=== PATIENT | male | born 1945 | race Caucasian/White ===

== ENCOUNTER 2025-02-09 19:39 | Inpatient (IN) | payer MEDICARE, MEDICAID ==
[~2025-02-09] VITALS: Ht 162.6 cm; Wt 59.6 kg
[2025-02-09] MEDS ORDERED: LEVE-71 PO (21:22)
[2025-02-09] MEDS ORDERED: BRIM5DRO9 OD (21:22)
[2025-02-09] MEDS ORDERED: BACL10TA PO (21:22)
[2025-02-09] MEDS ORDERED: DIVA-111 PO (21:22)
[2025-02-09] MEDS ORDERED: DORZ10DR6 OD (21:22)
[2025-02-09] MEDS ORDERED: QUET25TA PO (21:22)
[2025-02-09] MEDS ORDERED: CARV-165 PO (21:22)
[2025-02-09] MEDS ORDERED: MULT-1203 PO (21:22)
[2025-02-09] MEDS ORDERED: XALA2.5OS OU (21:23)
[2025-02-09] MEDS ORDERED: HYDR-4062 PO (21:23)
[2025-02-09 22:01] LABS: COVID AG,FIA SOURCE NASAL SWAB
[2025-02-09 22:28] LABS: SARS-COV2 (COVID) ANTIGEN,FIA Negative (Negative)
[2025-02-10 00:11] LABS: APPEARANCE,URINE HAZY (CLEAR); GLUCOSE, URINE (UA) NEGATIVE (NEGATIVE); LEUKOCYTE ESTERASE ,URINE LARGE (NEGATIVE); NITRATE,URINE NEGATIVE (NEGATIVE); OCCULT BLOOD,URINE NEGATIVE (NEGATIVE); PH,URINE DRUG SCREEN 6.0 (5.0-8.0); SPECIFIC GRAVITIY, URINE 1.019 (1.003-1.030)
[2025-02-10 00:17] LABS: AMPHET/METH SCREEN,URINE NEGATIVE (NEGATIVE); BARBITURATE SCREEN, URINE NEGATIVE (NEGATIVE); CANNABINOID SCREEN,URINE NEGATIVE (NEGATIVE); COCAINE SCREEN,URINE NEGATIVE (NEGATIVE); METHADONE SCREEN, URINE NEGATIVE (NEGATIVE)
[2025-02-10 00:20] LABS: ALCOHOL, URINE DRUG SCREEN NEGATIVE (NEGATIVE)
[2025-02-10 00:21] LABS: AMORPHOUS SEDIMENT,UR Many /LPF (None Seen); SQUAMOUS EPITHELIAL CELL,UR Moderate /LPF (None Seen)
[2025-02-10] MEDS ORDERED: ZOLPIDEM TARTRATE 10 MG TABLET PO PRN (02:15)
[2025-02-10 20:00] VITALS: BP 123/61; PULSE 86; RESP 18; TEMP 97.2; TEMP 97.3; O2SAT 96
[2025-02-11] MEDS ORDERED: IBUPROFEN 600 MG TABLET PO PRN (07:15)
[2025-02-11] MEDS ORDERED: ACETAMINOPHEN 325 MG TABLET PO PRN (07:15)
[2025-02-11] MEDS ORDERED: HYDROCODONE/ACETAMINOPHEN 5-325 MG TABLET PO PRN (07:15)
[2025-02-11] MEDS ORDERED: PETROLATUM,WHITE 28 GM JELLY TP PRN (07:15)
[2025-02-11] MEDS ORDERED: DOCUSATE SODIUM 100 MG CAPSULE PO PRN (07:15)
[2025-02-11] MEDS ORDERED: MAG HYDROX/ALUMINUM HYD/SIMETH ES 30 ML SUSPENSION UDCUP PO PRN (07:15)
[2025-02-11] MEDS ORDERED: ALBUTEROL SULFATE HFA 90 MCG/PUFF 8 GM INHALER IH PRN (07:15)
[2025-02-11] MEDS ORDERED: LOPERAMIDE HCL 2 MG CAPSULE PO PRN (07:15)
[2025-02-11] MEDS ORDERED: ONDANSETRON 4 MG TABLET PO PRN (07:15)
[2025-02-11] MEDS ORDERED: BACITRACIN 28 GM OINTMENT TP PRN (07:15)
[2025-02-11] MEDS ORDERED: BENZOCAINE/MENTHOL [CEPACOL] LOZENGE PO PRN (07:15)
[2025-02-11] MEDS ORDERED: OMEPRAZOLE 20 MG CAPSULE PO PRN (07:15)
[2025-02-11] MEDS ORDERED: MAGNESIUM HYDROXIDE SUSPENSION 30 ML UDCUP PO PRN (07:15)
[2025-02-11] MEDS: MULTIVITAMINS, THERAPEUTIC TABLET PO SCH (08:47)
[2025-02-11] MEDS: BACLOFEN 10 MG TABLET PO SCH (08:50)
[2025-02-11] MEDS: DORZOLAMIDE HCL 2% 10 ML OPHTHALMIC SOLUTION OD SCH (08:52)
[2025-02-11] MEDS: BRIMONIDINE TARTRATE 0.2% 5 ML OPHTHALMIC SOLUTION OD SCH (08:55)
[2025-02-11 09:36] VITALS: BP 121/92; PULSE 93; RESP 16; TEMP 97.7; O2SAT 95
[2025-02-11] MEDS: LATANOPROST 0.005% 2.5 ML OPHTHALMIC SOLUTION OU SCH (20:59)
[2025-02-12 11:11] VITALS: BP 105/89; PULSE 92; RESP 16; TEMP 97.7; O2SAT 97
[2025-02-12] MEDS: DIVALPROEX SODIUM 250 MG DR TABLET PO SCH (12:42)
[2025-02-12] MEDS: MEMANTINE HCL 5 MG TABLET PO SCH (18:09)
[2025-02-12 20:22] VITALS: BP 103/88; PULSE 86; RESP 16; TEMP 97.6; O2SAT 97
[2025-02-13 08:30] VITALS: BP 136/97; PULSE 81; RESP 16; TEMP 97.6; O2SAT 96
[2025-02-13 20:24] VITALS: BP 124/89; PULSE 97; RESP 18; TEMP 97.9; O2SAT 96
[2025-02-14 08:34] LABS: PLATELET COUNT (AUTO) 139 K/uL (150-450); RED BLOOD CELL COUNT(AUTO) 4.93 MIL/uL (4.50-5.90); RED CELL DISTRIBUTION WIDTH 14.8 % (11.5-14.5); WHITE BLOOD COUNT (AUTO) 5.6 K/uL (4.5-11.0)
[2025-02-14 09:03] LABS: ASPARTATE AMINOTRANSFERASE 14 U/L (15-37); CALCIUM, TOTAL 8.4 mg/dL (8.8-10.5); CHOL/HDL RATIO 3.4 (4.2-7.3); CREATININE 0.90 mg/dL (0.60-1.30); GLOMERULAR FILTR. RATE CALC > 60 mL/min (>60); GLUCOSE,RANDOM 95 mg/dL (70-110); LDL CHOL (CALC.) 110 mg/dL (0-130); SODIUM SERUM 144 mmol/L (136-145); TOTAL PROTEIN, SERUM 7.2 g/dL (6.4-8.2); UREA NITROGEN, BLOOD 18 mg/dL (7-18)
[2025-02-14 09:13] VITALS: BP 107/72; PULSE 93; RESP 18; TEMP 97.8; O2SAT 95
[2025-02-14 20:14] VITALS: BP 113/72; PULSE 68; RESP 18; TEMP 97.5; O2SAT 97
[2025-02-15 09:30] VITALS: BP 130/96; PULSE 86; RESP 17; TEMP 97.4; O2SAT 98
[2025-02-15] MEDS ORDERED: QUET100T PO (13:19)
[2025-02-15] MEDS ORDERED: QUET25TA PO (13:19)
[2025-02-15] MEDS ORDERED: MEMA5TAB41 PO (13:19)
== END 2025-02-15 17:10 | DRG 885 ==
LOC: EMS 19:40 → 3EX 02-10 20:00 → 3EI 02-10 20:28 → 3EX 02-11 21:30
PROVIDERS: ADMIT Psychiatry & Neurology Psychiatry; ATTEND Psychiatry & Neurology Psychiatry
DX: F31.9 Bipolar disorder, unspecified (principal); F03.94 Unspecified dementia, unspecified severity, with anxiety; I10 Essential (primary) hypertension; G40.909 Epilepsy, unspecified, not intractable, without status epilepticus; J44.9 Chronic obstructive pulmonary disease, unspecified; Z20.822 Contact with and (suspected) exposure to COVID-19; G47.00 Insomnia, unspecified; K59.00 Constipation, unspecified; K21.9 Gastro-esophageal reflux disease without esophagitis; M19.90 Unspecified osteoarthritis, unspecified site; H54.7 Unspecified visual loss
CPT/HCPCS: 80053; 80061; 80307; 81001; 83036; 84436; 84443; 85025; 87081; 97116; 97163; 99285; G0378